=== PATIENT | female | born 1955 | race Caucasian/White ===

== ENCOUNTER 2019-01-11 04:01 | Inpatient (IN) | payer OTHER ==
[2019-01-11 04:24] LABS: ADD MAN DIFF? NO
[2019-01-11] MEDS: KETOROLAC 30 MG INJ IV (04:28)
[2019-01-11] MEDS: ONDANSETRON 4 MG INJ IV (04:28)
[2019-01-11] MEDS: SOD CHLORIDE 0.9% 1,000 ML IV ×2 (04:28→15:00)
[2019-01-11] MEDS: morphine 2 MG INJ IV (04:29)
[2019-01-11 04:32] LABS: BASOPHIL # 0.1 10^3/ul (0.0-0.1); BASOPHILS % 0.4 % (0.0-2.0); EOSINOPHILS # 0.1 10^3/ul (0.0-0.5); EOSINOPHILS % 0.4 % (0.0-7.0); HEMATOCRIT 38.1 % (37.0-47.0); HEMOGLOBIN 12.3 g/dl (12.0-16.0); LYMPHOCYTES % 12.4 % (15.0-51.0); MEAN CORPUSCULAR HEMOGLOBIN 27.2 pg (29.0-33.0); MEAN CORPUSCULAR HGB CONC 32.3 g/dl (32.0-37.0); MEAN CORPUSCULAR VOLUME 84.3 fl (82.0-101.0); MEAN PLATELET VOLUME 12.2 fl (7.4-10.4); MONOCYTE # 0.7 10^3/ul (0.3-0.9); MONOCYTES % 4.6 % (0.0-11.0); NEUTROPHIL # 13.2 10^3/ul (1.6-7.5); NEUTROPHILS % 81.5 % (39.0-77.0); PLATELET COUNT 247 10^3/UL (140-415); RED BLOOD COUNT 4.52 10^6/ul (4.20-5.40); RED CELL DISTRIBUTION WIDTH 13.2 % (11.5-14.5)
[2019-01-11 04:32] LABS: WHITE BLOOD COUNT 16.2 10^3/ul (4.8-10.8)
[2019-01-11 04:45] LABS: ALANINE AMINOTRANSFERASE 75 IU/L (13-69); ALBUMIN 4.5 g/dl (3.3-4.9); ALBUMIN/GLOBULIN RATIO 1.36; ALKALINE PHOSPHATASE 141 IU/L (42-121); ANION GAP 10 (5-13); ASPARTATE AMINO TRANSFERASE 158 IU/L (15-46); BILIRUBIN,INDIRECT 0.4 mg/dl (0-1.1); BILIRUBIN,TOTAL 0.4 mg/dl (0.2-1.3); BLOOD UREA NITROGEN 16 mg/dl (7-20); CALCIUM 9.7 mg/dl (8.4-10.2); CARBON DIOXIDE 29 mmol/L (21-31); CHLORIDE 104 mmol/L (97-110); CREATININE 0.67 mg/dl (0.44-1.00); Estimated GFR > 60 mL/min (>60); GLUCOSE 232 mg/dl (70-220); LIPASE 81 U/L (23-300); POTASSIUM 4.1 mmol/L (3.5-5.1); SODIUM 143 mmol/L (135-144); TOTAL PROTEIN 7.8 g/dl (6.1-8.1)
[2019-01-11 05:44] LABS: URINE BLOOD (Dip) POC Trace-intact (NEGATIVE); URINE GLUCOSE (Dip) POC Negative (NEGATIVE); URINE KETONES (Dip) POC Negative (NEGATIVE); URINE LEUKOCYTE EST (Dip) POC Trace (NEGATIVE); URINE NITRITE (Dip) POC Negative (NEGATIVE); URINE TOTAL PROTEIN POC Negative (NEGATIVE)
[2019-01-11] MEDS: PIPER-TAZO 3.375 GM IV (PMX) 100 ML IVPB (06:08)
[2019-01-11] MEDS ORDERED: DESFLURANE 15 MIN (07:00)
[2019-01-11] MEDS ORDERED: PROPOFOL 20 ML (11:25)
[2019-01-11] MEDS ORDERED: ROCURONIUM 50 MG INJ (11:25)
[2019-01-11] MEDS ORDERED: CEFAZOLIN 1 GM INJ (11:25)
[2019-01-11] MEDS ORDERED: MIDAZOLAM 1 MG/ML 2 ML INJ (11:25)
[2019-01-11] MEDS ORDERED: GLYCOPYRROLATE 0.4 MG INJ (11:27)
[2019-01-11] MEDS ORDERED: NEOSTIGMINE 3 MG/3 ML SYRINGE (11:27)
[2019-01-11] MEDS ORDERED: ONDANSETRON 4 MG INJ (11:27)
[2019-01-11] MEDS ORDERED: KETOROLAC 30 MG INJ (11:27)
[2019-01-11] MEDS ORDERED: hydrALAzine 20 MG INJ (12:23)
[2019-01-11] MEDS: BUPIVACAINE 0.25% (MPF) 30 ML INJ (12:25)
[2019-01-11] MEDS ORDERED: OXYCODONE/ACETAMINOPHEN (5/325) TAB PO ×2 (12:30→13:00)
[2019-01-11] MEDS ORDERED: HYDROmorphONE 1 MG/5 ML IV SYRINGE IV (12:30)
[2019-01-11] MEDS ORDERED: morphine 2 MG INJ IV (13:00)
[2019-01-11] MEDS ORDERED: ONDANSETRON 4 MG INJ IV (13:00)
[2019-01-11 14:57] LABS: HEMOGLOBIN A1C 7.1 % (0-5.9)
[2019-01-11] MEDS: ACETAMINOPHEN 325 MG TAB PO (21:18)
[2019-01-12] MEDS: NACL 0.9% 3 ML SYG IV (00:51)
[2019-01-12 06:26] LABS: ADD MAN DIFF? NO
[2019-01-12 06:31] LABS: BASOPHILS % 0.3 % (0.0-2.0); EOSINOPHILS % 0.1 % (0.0-7.0); HEMATOCRIT 32.4 % (37.0-47.0); HEMOGLOBIN 10.5 g/dl (12.0-16.0); LYMPHOCYTES # 2.7 10^3/ul (0.8-2.9); MEAN CORPUSCULAR HEMOGLOBIN 27.7 pg (29.0-33.0); MEAN CORPUSCULAR HGB CONC 32.4 g/dl (32.0-37.0); MEAN CORPUSCULAR VOLUME 85.5 fl (82.0-101.0); MEAN PLATELET VOLUME 12.9 fl (7.4-10.4); MONOCYTE # 0.6 10^3/ul (0.3-0.9); MONOCYTES % 4.7 % (0.0-11.0); NEUTROPHIL # 9.3 10^3/ul (1.6-7.5); NEUTROPHILS % 73.5 % (39.0-77.0); PLATELET COUNT 204 10^3/UL (140-415); RED BLOOD COUNT 3.79 10^6/ul (4.20-5.40); RED CELL DISTRIBUTION WIDTH 13.8 % (11.5-14.5)
[2019-01-12 06:31] LABS: WHITE BLOOD COUNT 12.7 10^3/ul (4.8-10.8)
[2019-01-12 07:10] LABS: CHOL/HDL RATIO 5.8 RATIO; CHOLESTEROL 198 mg/dl (100-200); HDL CHOLESTEROL 34 mg/dl (35-98); LDL CHOLESTEROL,CALCULATED 124 mg/dl; MAGNESIUM 2.1 mg/dl (1.7-2.5); TRIGLYCERIDES 200 mg/dl (0-149)
[2019-01-12 07:10] LABS: PHOSPHORUS 3.2 mg/dl (2.5-4.9)
[2019-01-12 07:41] LABS: ALANINE AMINOTRANSFERASE 281 IU/L (13-69); ALBUMIN 3.4 g/dl (3.3-4.9); ALBUMIN/GLOBULIN RATIO 1.21; ALKALINE PHOSPHATASE 130 IU/L (42-121); ANION GAP 7 (5-13); ASPARTATE AMINO TRANSFERASE 178 IU/L (15-46); BILIRUBIN,INDIRECT 0.5 mg/dl (0-1.1); BILIRUBIN,TOTAL 0.5 mg/dl (0.2-1.3); BLOOD UREA NITROGEN 12 mg/dl (7-20); CALCIUM 8.8 mg/dl (8.4-10.2); CARBON DIOXIDE 24 mmol/L (21-31); CHLORIDE 109 mmol/L (97-110); CREATININE 0.66 mg/dl (0.44-1.00); Estimated GFR > 60 mL/min (>60); GLUCOSE 135 mg/dl (70-220); POTASSIUM 4.5 mmol/L (3.5-5.1); SODIUM 140 mmol/L (135-144); TOTAL PROTEIN 6.2 g/dl (6.1-8.1)
[2019-01-12] MEDS: OXYCODONE/ACETAMINOPHEN (5/325) TAB PO (09:11)
== END 2019-01-12 13:00 | disposition home or self-care (01) | DRG 419 ==
LOC: E/R 04:01 → REC 06:01 → MS1 14:15
PROVIDERS: Internal Medicine
PROC: 0FT44ZZ Resection of Gallbladder, Percutaneous Endoscopic Approach (ICD-10-PCS; principal; 2019-01-11 10:30)
DX: K81.0 Acute cholecystitis (principal); E11.65 Type 2 diabetes mellitus with hyperglycemia; E78.5 Hyperlipidemia, unspecified; R74.0 Nonspecific elevation of levels of transaminase and lactic acid dehydrogenase [LDH]
CPT/HCPCS: 36415; 71045; 76705; 80053; 80061; 81003; 83036; 83690; 83735; 84100; 85025; 88304; 93005; 96374; 96375; 99285-25